=== PATIENT | female | born 1995 | race Hispanic/Latino ===

== ENCOUNTER → 2018-04-07 | Outpatient (REF) | payer OTHER | LOC: M SFHCLERA 12:57 | DX: J02.9 Acute pharyngitis, unspecified (principal) ==

== ENCOUNTER 2019-01-11 19:46 | Emergency (ER) | payer OTHER ==
[~2019-01-11] VITALS: Ht 157.5 cm; Wt 58.6 kg
[2019-01-11] MEDS ORDERED: EFFE75CA2 PO ×2 (20:10)
[2019-01-11 20:13] LABS: BASO % 0.3 % (0.0-1.0); EOS # 0.1 10^3/uL (0.0-0.50); EOS % 0.4 % (0.0-3.0); HEMATOCRIT 38.6 % (36.0-47.0); HEMOGLOBIN 12.6 g/dl (12.0-15.5); LYMPH # 3.4 10^3/uL (1.5-6.5); LYMPH % 24.3 % (24.0-44.0); MEAN CORPUSCULAR HEMOGLOBIN 29.6 pg (27.0-33.0); MEAN CORPUSCULAR HGB CONC 32.6 g/dl (32.0-36.5); MEAN CORPUSCULAR VOLUME 90.6 fl (80.0-96.0); MONO # 1.1 10^3/uL (0.0-0.8); MONO % 7.5 % (0.0-5.0); NEUTROPHILS # 9.5 10^3/uL (1.8-7.7); NEUTROPHILS % 67.2 % (36.0-66.0); PLATELET COUNT, AUTOMATED 268 10^3/uL (150-450); RED BLOOD COUNT 4.26 10^6/uL (4.00-5.40); WHITE BLOOD COUNT 14.1 10^3/uL (4.0-10.0)
[2019-01-11] MEDS ORDERED: CLON0.5T17 PO (20:13)
[2019-01-11] MEDS ORDERED: BUSP10TA PO (20:13)
[2019-01-11] MEDS ORDERED: LORazepam 2 MG/ML VIAL (J2060) IV STA ×2 (20:36→20:56)
[2019-01-11 20:44] LABS: HCG, SERUM QUALITATIVE NEGATIVE (NEGATIVE)
[2019-01-11] MEDS ORDERED: NS 1,000 ML IV ONE (20:45)
[2019-01-11 20:51] LABS: ACETAMINOPHEN LEVEL < 2.0 UG/ML (10.0-30.0); ALT/SGPT 27 U/L (12-78); BILIRUBIN,DIRECT 0.2 MG/DL (0.0-0.2); BILIRUBIN,TOTAL 0.5 MG/DL (0.2-1.0); BLOOD UREA NITROGEN 14 MG/DL (7-18); CALCIUM LEVEL 9.4 MG/DL (8.5-10.1); CARBON DIOXIDE LEVEL 26 MEQ/L (21-32); CHLORIDE LEVEL 107 MEQ/L (98-107); CREATININE FOR GFR 0.89 MG/DL (0.55-1.30); ETHYL ALCOHOL (ETHANOL) < 0.003 % (0.000-0.010); GLOMERULAR FILTRATION RATE > 60.0 (>60); GLUCOSE, FASTING 88 MG/DL (70-100); POTASSIUM SERUM 4.4 MEQ/L (3.5-5.1); SALICYLATE LEVEL < 1.7 MG/DL (5.0-30.0); SODIUM LEVEL 142 MEQ/L (136-145); TOTAL PROTEIN 7.4 GM/DL (6.4-8.2)
[2019-01-11] MEDS ORDERED: propofoL 200 MG/20 ML VIAL As Ordered ONE (21:30)
[2019-01-11] MEDS ORDERED: TETANUS/DIPHTHERIA TOX ADSORB ADULT 0.5ML SYR/VIAL (90714) IM ONE (22:15)
[2019-01-11] MEDS ORDERED: propofoL 200 MG/20 ML VIAL IV ONE (22:15)
[2019-01-11] MEDS ORDERED: MORPHINE 2 MG/ML 1ML VIAL (J2270) IV ONE (22:30)
[2019-01-11 22:57] LABS: AMPHETAMINES LEVEL URINE NEGATIVE (NEGATIVE); BARBITURATES URINE NEGATIVE (NEGATIVE); BENZODIAZEPINES URINE NEGATIVE (NEGATIVE); CANNABINOIDS URINE POSITIVE (NEGATIVE); COCAINE METABOLITE URINE NEGATIVE (NEGATIVE); METHADONE URINE NEGATIVE (NEGATIVE); OPIATES URINE POSITIVE (NEGATIVE); PHENCYCLIDINE URINE NEGATIVE (NEGATIVE)
[2019-01-12 04:31] VITALS: BP 129/62
[2019-01-12] MEDS ORDERED: NORCO, ANEXSIA 5/325MG TABLET (HYDROcodone/ACETAMINOPHEN) PO ONE (04:45)
--- NOTE | 2019-01-13 06:52 | ECGEPIP ---
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
== END 2019-01-12 04:46 | disposition short-term general hospital (02) ==
LOC: M ED 19:46
DX: T14.91XA Suicide attempt, initial encounter (principal); S61.411A Laceration without foreign body of right hand, initial encounter; S51.812A Laceration without foreign body of left forearm, initial encounter; S10.91XA Abrasion of unspecified part of neck, initial encounter; S20.319A Abrasion of unspecified front wall of thorax, initial encounter; S30.811A Abrasion of abdominal wall, initial encounter; F11.10 Opioid abuse, uncomplicated; X78.9XXA Intentional self-harm by unspecified sharp object, initial encounter; Y92.098 Other place in other non-institutional residence as the place of occurrence of the external cause; F41.9 Anxiety disorder, unspecified; F32.9 Major depressive disorder, single episode, unspecified; Z88.0 Allergy status to penicillin; Z79.899 Other long term (current) drug therapy
CPT/HCPCS: 12002; 80048; 80076; 80307; 84443; 84703; 85025; 90471; 90714; 93005; 96374; 96375; 99152; 99153; 99285; G0480; J2060; J2270